=== PATIENT | male | born 1975 | race Caucasian/White ===

== ENCOUNTER 2022-11-02 09:07 | Emergency (ER) | payer OTHER ==
[~2022-11-02] VITALS: Ht 177.8 cm; Wt 95.8 kg
[2022-11-02] MEDS ORDERED: COZAAR100 MG PO (09:16)
[2022-11-02 10:40] VITALS: BP 140/103
== END 2022-11-02 10:40 | disposition home or self-care (01) ==
LOC: ED 09:07
DX: S62.001A Unspecified fracture of navicular [scaphoid] bone of right wrist, initial encounter for closed fracture (principal); W19.XXXA Unspecified fall, initial encounter; Z88.0 Allergy status to penicillin; Z88.5 Allergy status to narcotic agent; Z91.010 Allergy to peanuts; Z79.899 Other long term (current) drug therapy
CPT/HCPCS: 29125; 73110; 99283-25; A9270